=== PATIENT | female | born 1965 | race Caucasian/White ===

== ENCOUNTER 2018-11-15 06:58 | Day surgery (SDC) | payer OTHER ==
[2018-11-15] MEDS ORDERED: CEFAZOLIN 2 GM/50 ML (PMX) 50 ML IVPB (07:00)
[2018-11-15] MEDS: LACTATED RINGER'S 1,000 ML IV (08:11)
[2018-11-15] MEDS ORDERED: OXYCODONE/ACETAMINOPHEN (5/325) TAB PO (08:30)
[2018-11-15] MEDS ORDERED: HYDROmorphONE 1 MG/5 ML IV SYRINGE IV ×2 (08:30)
[2018-11-15] MEDS ORDERED: FENTAnyl 50 MCG/ML VIAL IV ×2 (08:30)
[2018-11-15] MEDS ORDERED: ONDANSETRON 4 MG INJ IV (08:30)
[2018-11-15] MEDS ORDERED: METOCLOPRAMIDE 10 MG INJ IV (08:30)
[2018-11-15] MEDS ORDERED: MIDAZOLAM 1 MG/ML 2 ML INJ (09:19)
[2018-11-15] MEDS ORDERED: PROPOFOL 20 ML (09:19)
[2018-11-15] MEDS ORDERED: FENTAnyl 50 MCG/ML VIAL (09:20)
[2018-11-15] MEDS ORDERED: ROCURONIUM 50 MG INJ (09:56)
[2018-11-15] MEDS ORDERED: SUCCINYLCHOLINE CHLORIDE 100 MG/5 ML SYG IV (09:56)
[2018-11-15] MEDS ORDERED: DEXAMETHASONE 4 MG/ML 5 ML INJ (09:56)
[2018-11-15] MEDS: IOHEXOL 300MG/ML 30 ML BTL (09:56)
[2018-11-15] MEDS ORDERED: ONDANSETRON 4 MG INJ (09:56)
[2018-11-15] MEDS ORDERED: KETOROLAC 30 MG INJ (09:56)
[2018-11-15] MEDS ORDERED: METOCLOPRAMIDE 10 MG INJ (09:56)
[2018-11-15] MEDS ORDERED: SUGAMMADEX SODIUM 200 MG/2 ML VIAL IV (10:15)
== END 2018-11-15 11:30 | disposition home or self-care (01) ==
LOC: SDS 06:58
DX: N20.1 Calculus of ureter (principal)
CPT/HCPCS: 52353; 74430